=== PATIENT | male | born 2005 | race Caucasian/White ===

== ENCOUNTER 2025-07-14 16:39 | Emergency (ER) | payer OTHER, SELFPAY ==
[2025-07-14 16:41] VITALS: BP 141/81; PULSE 113; RESP 18; TEMP 38.8; O2SAT 94; BMI 20.1
--- NOTE | 2025-07-14 16:55 | CT_ITS ---
PROCEDURE: CT SOFT TISSUE NECK WITH CONTRAST 07/14/2025 REASON FOR EXAM: DYSPHONIA, SWELLING, FEVER TECHNIQUE: Procedure Code: CTNEW Modality: CT Procedure: SOFT TISSUE NECK WITH CONTRAST CONTRAST: Isovue 370 VOLUME: 74 mL One or more dose reduction techniques were used (e.g., Automated exposure control, adjustment of the mA and/or kV according to patient size, use of iterative reconstruction technique). RADIATION DOSE SUMMARY: CTDlvol: 13.23 mGy DLP: 403.33 mGycm COMPARISON: None. FINDINGS: Markedly enlarged bilateral palatine tonsils with hyperemia compatible with tonsillitis. No drainable fluid collection/abscess or other rim enhancing lesion is seen. No prevertebral/retropharyngeal soft tissue swelling. Mild-moderate narrowing of the oropharyngeal airway due to tonsillar enlargement. Prominent bilateral generalized cervical lymphadenopathy, most likely reactive. Bilateral major salivary glands appear symmetric and within normal limits. Unremarkable thyroid. Major vascular structures are patent, normal in course and caliber. 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 Visualized osseous structures are intact and within normal limits. Well-aerated paranasal sinuses and bilateral mastoid air cells, and middle ear cavities. Clear lung apices. CT/Soft Tissue Neck WITH Contrast IMPRESSION: Markedly enlarged bilateral palatine tonsils with hyperemia compatible with ton sillitis. No drainable fluid collection/abscess or retropharyngeal edema. Mild-moderate oropharyngeal airway narrowing. Prominent generalized bilateral cervical lymphadenopathy, likely reactive. Reading Location: [id number]
[2025-07-14] MEDS: 0.9% Normal Saline (1000mL) 1,000 ML 1000 ML IV (17:09)
--- OUTSIDE RECORDS SUMMARY | 2025-07-14 17:10 | XMS RPT_ITS | CCD ---
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 Encounter Date Encounter Type Care Provider Facility Start: 06-09-2025 End: 06-09-[address] Eduardo Long MD -[facility] Start: 06-09-2025 End: 06-09-[address] 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 Haja Kaba MD Work Phone: Plan of Treatment Date Care Activity Detail Author Start: 09-01-2025 Urine microalbumin profile DTaP,Tdap,Td Vaccine (7 - Td or Tdap) [facility] Start: 06-09-2025 Plain x-ray of hand Hand Min 3 Views [facility] Start: 06-09-2025 XR Hand GE 3 Views [facility] Start: 07-14-2024 Covid-19 Vaccine ( season) Covid-19 Vaccine ( season) [facility] Start: 07-14-2024 Influenza vaccination Influenza Vaccine (#1) [facility] Start: 2021 Anxiety Screening Anxiety Screening [facility] Start: 2021 Depression Screening Depression Screening [facility] Start: 2021 Hepatitis C screening Hepatitis C Screening [facility] Start: 2021 HIV screening HIV Screening [facility] Start: 2019 Meningococcal B Vaccine: Consider Based On Risk (1 of 2 - Patient Seeks Protection) Meningococcal B Vaccine: Consider Based On Risk (1 of 2 - Patient Seeks Protection) [facility] Start: 2017 Peds To Adult Transition Annual Assessment Peds To Adult Transition Annual Assessment [facility] Start: 2015 Peds To Adult Transition Initial Discussion Peds To Adult Transition Initial Discussion [facility] Immunizations Immunization Date Immunization Notes Care Provider Marcia hensley 10-14-2016 influenza virus vacc ine, unspecified formulation Edilma Feldman APRN.MARITZA Work Phone: [facility] Payers Date Payer Category Payer Self-pay 2025 Unknown [id number] 2017 Private Health Insurance [id number] 2003 Unknown [id number] 1963 Unknown [id number] Private Health Insurance [id number] Private Health Insurance [id number] Unknown [id number] Unknown [id number] Unknown [id number] Social History Date Type Detail Facility Tobacco smoking status MIIS Tobacco smoking consumption unknown [facility] Start: 2003 Sex assigned at Not on file [facility] Gender identity Not on file [facility] Start: 06-09-2025 Tobacco smoking status MIIS Smokes tobacco daily (finding) [facility] Start: 2003 Sex Assigned At Male W [facility] Instructions 09-16-2024 Patient Instructions Note Date & Type Note Facility 09-16-2024 Instructions Edilma Feldman APRN.CNP - 09/16/2024 12:21 PM EST ASSESSMENT/PLAN: 1. Swelling of right lower eyelid - ICD9: 374.82, ICD10: H02.842 - POLYMYXIN B SULFATE 10,000 UNIT-TRIMETHOPRIM 1 MG/ML EYE DROPS - cool compresses will reduce swelling. - Follow-up with your PCP in 3-5 days if symptoms have not improved or sooner if symptoms worsen - Discussed red flags and need for immediate medical evaluation if any occur. - Discussed supportive care treatment with fluids, rest and analgesia. - Discussed expected course of illness Edilma Feldman APRN.CNP documented in this encounter [facility] Progress note 09-16-2024 Note Date & Type Note Facility 09-16-2024 Note HNO ID: [id number] Author: EDILMA FELDMAN APRN.CNP Service: ? Author Type: Nurse Practitioner Type: Progress Notes Filed: 09/16/2024 12:26 Note Text: Subjective Eye Problem Pertinent negatives include no chills or fever. Nigel Morejon is a 19 year old male who presents with right lower eyelid swelling and tenderness for the past 2 days. This started on Monday States eye was almost swollen shut. Denies eye pain, discharge, or visual changes No ear pain or sore throat No cough, congestion. He has not used any medication in the eye. Denies trauma to the eye. Review of Systems Constitutional: Negative for chills and fever. Eyes: Negative for blurred vision, double vision, photophobia, pain, discharge and redness. Respiratory: Negative. Cardiovascular: Negative. Musculoskeletal: Negative. BP 128/72 Pulse 70 Temp 36.2 ?C (97.2 ?F) Resp 16 Wt 67.3 kg (148 lb 5.9 oz) SpO2 97% No past medical history on file. No past surgical history on file. ALLERGIES Patient has no known allergies. MEDICATIONS No prescriptions on file. No family history on file. Objective Physical Exam Vitals and nursing note reviewed. Constitutional: Appearance: Normal appearance. HENT: Right Ear: Tympanic membrane, ear canal and external ear normal. Left Ear: Tympanic membrane, ear canal and external ear normal. Nose: No congestion or rhinorrhea. Eyes: General: No allergic shiner. Right eye: No foreign body, discharge or hordeolum. Left eye: No discharge. Extraocular Movements: Extraocular movements intact. Conjunctiva/sclera: Conjunctivae normal. Right eye: Right conjunctiva is not injected. No chemosis, exudate or hemorrhage. Left eye: Left conjunctiva is not injected. No chemosis. Pupils: Pupils are equal, round, and reactive to light. Comments: Visual acuity: OD 20/20 OS 20/20 Cardiovascular: Rate and Rhythm: Normal rate. Pulmonary: Effort: Pulmonary effort is normal. Skin: General: Skin is warm and dry. Findings: Erythema present. No rash. Neurological: Mental Status: He is alert. ASSESSMENT/PLAN: 1. Swelling of right lower eyelid - ICD9: 374.82, ICD10: H02.842 - suspect resolving stye - POLYMYXIN B SULFATE 10,000 UNIT-TRIMETHOPRIM 1 MG/ML EYE DROPS - cool compresses will reduce swelling. - Follow-up with your PCP in 3-5 days if symptoms have not improved or sooner if symptoms worsen - Discussed red flags and need for immediate medical evaluation if any occur. - Discussed supportive care treatment with fluids, rest and analgesia. - Discussed expected course of illness Edilma Feldman APRN.MARITZA [facility] History of Present illness Narrative 09-16-2024 Edilma Feldman APRN.MARITZA - 09/16/2024 12:20 PM EST Note Date & Type Note Facility 09-16-2024 History of Presen t illness Narrative Images from the original note were not included. Subjective Eye Problem Pertinent negatives include no chills or fever. Nigel Morejon is a 19 year old male who presents with right lower eyelid swelling and tenderness for the past 2 days. This started on Monday States eye was almost swollen shut. Denies eye pain, discharge, or visual changes No ear pain or sore throat No cough, congestion. He has not used any medication in the eye. Denies trauma to the eye. Review of Systems Constitutional: Negative for chills and fever. Eyes: Negative for blurred vision, double vision, photophobia, pain, discharge and redness. Respiratory: Negative. Cardiovascular: Negative. Musculoskeletal: Negative. BP 128/72 Pulse 70 Temp 36.2 C (97.2 F) Resp 16 Wt 67.3 kg (148 lb 5.9 oz) SpO2 97% No past medical history on file. No past surgical history on file. ALLERGIES Patient has no known allergies. MEDICATIONS No prescriptions on file. No family history on file. Objective Physical Exam Vitals and nursing note reviewed. Constitutional: Appearance: Normal appearance. HENT: Right Ear: Tympanic membrane, ear canal and external ear normal. Left Ear: Tympanic membrane, ear canal and external ear normal. Nose: No congestion or rhinorrhea. Eyes: General: No allergic shiner. Right eye: No foreign body, discharge or hordeolum. Left eye: No discharge. Extraocular Movements: Extraocular movements intact. Conjunctiva/sclera: Conjunctivae normal. Right eye: Right conjunctiva is not injected. No chemosis, exudate or hemorrhage. Left eye: Left conjunctiva is not injected. No chemosis. Pupils: Pupils are equal, round, and reactive to light. Comments: Visual acuity: OD 20/20 OS 20/20 Cardiovascular: Rate and Rhythm: Normal rate. Pulmonary: Effort: Pulmonary effort is normal. Skin: General: Skin is warm and dry. Findings: Erythema present. No rash. Neurological: Mental Status: He is alert. ASSESSMENT/PLAN: 1. Swelling of right lower eyelid - ICD9: 374.82, ICD10: H02.842 - suspect resolving stye - POLYMYXIN B SULFATE 10,000 UNIT-TRIMETHOPRIM 1 MG/ML EYE DROPS - cool compresses will reduce swelling. - Follow-up with your PCP in 3-5 days if symptoms have not improved or sooner if symptoms worsen - Discussed red flags and need for immediate medical evaluation if any occur. - Discussed supportive care treatment with fluids, rest and analgesia. - Discussed expected course of illness Edilma Feldman APRN.[employer] INTER[employer] documented in this encounter [facility] Evaluation note Note Date & Type Note Facility Evaluation note Diagnosis Swelling of right lower eyelid- Primary documented in this encounter [facility] Evaluation note Note Date & Type Note Facility Evaluation note No assessment information availa ble [facility] Work Phone: Reason for referral (narrative) Note Date & Type Note Facility Reason for referral (narrative) No reason for referral information available [facility] Work Phone: Summary Purpose Family History No Family History Records FoundNo Family History Records FoundNo Family History Records FoundNo Family History Records FoundNo Family History Records Found Advance Directives No Advanced Directives Records FoundNo Advanced Directives Records FoundNo Advanced Directives Records FoundNo Advanced Directives Records FoundNo Advanced Directives Records Found Chief Complaint and Reason for Visit Chief Complaint Admit Date R PINKY INJURY June 09, 2025 7:52 am XRAY June 09, 2025 8:07 am Additional Source Comments (unrecognized sect ion and content) No Status Records FoundNo Status Records FoundNo Status Records FoundNo Status Records FoundNo Status Records Found INFORMATION SOURCE (unrecogn ized section and content) DATE CREATED AUTHOR 05/09/2018 [facility] ([place]) DATE CREATED AUTHOR AUTHOR'S ORGANIZ ATION 06/23/2020 [facility] DATE CREATED AUTHOR AUTHOR'S ORGANIZ ATION 11/01/2023 [facility] DATE CREATED AUTHOR AUTHOR'S ORGANIZ ATION 09/17/2024 [facility] DATE CREATED AUTHOR AUTHOR'S ORGANIZ ATION 06/09/2025 [facility] Source Comments (unrecognize d section and content) In the event this informatio n is protected by the Federal Confidentiality of Alcohol and Drug Abuse Patient Records regulations: The Federal rules restrict any use of the information to criminally investigate or prosecute any alcohol or drug abuse patient.[facility] Reason for Visit (unrecogniz ed section and content) Reason Comments Eye Problem right eye redness, i rritation and swelling x 2 days Care Teams (unrecognized sec tion and content) Team Status: Active Member Role/Relationship Status Dates Dr. Haja Kaba MD Family Provider Active Dr. Haja Kaba MD Primary Care Provider Active Team Status: Active Member Role/Relationship Status Dates Dr. Haja Kaba MD Primary Care Provider Active Start: June 09, 2025 Dr. Haja Kaba MD Referring Provider Active Start: June 09, 2025 Edgard BOWLES PA Attending Provider Active Start: June 09, 2025 Team Status: Inactive Member Role/Relationship Status Dates Dr. Haja Kaba MD Primary Care Provider Active Start: June 09, 2025 End: June 09, 2025 Dr. Eduardo Long MD Attending Provider Active S tart: June 09, 2025 End: June 09, 2025 Team Status: Inactive Member Role/Relationship Status Dates Dr. Haja Kaba MD Primary Care Provider Active Start: June 09, 2025 End: June 09, 2025 Dr. Haja Kaba MD Referring Provider Active Start: June 09, 2025 End: June 09, 2025 Edgard BOWLES PA Attending Provider Active Start: June 09, 2025 End: June 09, 2025 Goals (unrecognized section and content) Goals may be documented in a n alternate sectionGoals may be documented in an alternate section FOR RECORDS PERTAINING TO PATIENTS WHO ARE OR HAVE BEEN ENROLLED IN A CHEMICAL DEPENDENCY/SUBSTANCEABUSE PROGRAM, SOME INFORMATION MAY BE OMITTED. This clinical summary was aggregated from multiple sources. Caution should be exercised in using it in the provision of clinical care. This summary normalizes information from multiple sources, and as a consequence, information in this document may materially change the coding, format and clinical context of patient data. In addition, data may be omitted in some cases. CLINICAL DECISIONS SHOULD BE BASED ON THE PRIMARY CLINICAL RECORDS. [facility]. provides no warranty or guarantee of the accuracy or completeness of information in this document.
[2025-07-14 17:15] LABS: Hematocrit 42.3 % (40-54); Hemoglobin 14.5 g/dL (13.0-16.5); Mean Corp Hgb Conc 34.3 g/dL (32-36); Mean Corpuscular Volume 88.1 fL (80-94); Mean Platelet Vol. 9.9 fl (6.2-12.0); POSITIVE DIFFERENTIAL YES; POSITIVE MORPHOLOGY YES; Platelet Count 212 K/mm3 (150-450); RBC Distribution Width CV 12.6 % (11.6-14.6); RBC Distribution Width SD 39.9 fl (35.1-43.9); Red Blood Count 4.80 M/mm3 (4.6-6.2); White Blood Count 16.3 K/mm3 (4.4-11.0)
[2025-07-14 17:40] LABS: Differential Indicated MANUAL DIFF
[2025-07-14 17:44] LABS: Neutrophil-Band 8 % (0-5); Neutrophil-Segmented 42 % (47-70); Total Cells Counted 100 (MANUAL DIFF)
[2025-07-14 17:45] LABS: Red Cell Morphology NORM C+C NORMAL (NORM C&C)
[2025-07-14 17:47] LABS: Anion Gap 13 (5-15); BUN 8 mg/dL (4-19); BUN/Creat Ratio 8.8 RATIO (10-20); Calcium,Total 8.8 mg/dL (7.6-11.0); Carbon Dioxide 23.5 mmol/L (21.0-32.0); Chloride 95 mmol/L (98-108); Estimated Creatinine Clearance 103.53 ml/min (50-250); Glucose 106 mg/dL (70-99); Potassium 4.6 mmol/L (3.3-5.1)
[2025-07-14] MEDS: Ampicillin/Sulbactam 3 GM in 0.9% Normal Saline (100mL MB+) 100 ML IV (18:28)
--- NOTE | 2025-07-14 18:29 | EX.ED.DYSGE1 ---
HPI History of Present Illness Chief Complaint: Other, Pain/Inj Detail of Chief Complaint: Sore throat, fever, dysphonia, neck swelling Informant: patient Onset/Context/Timing Onset: Days (2 days ago) Context: Sudden Onset Timing: Continuous Quality: Tmax 102.6 degrees Location: Upper airway Current Severity: Mild Maximum Severity: Moderate Worsened by: Swallowing Relieved by: Nothing Associated Symptoms Associated Symptoms: HPI narrative Narrative Narrative: Patient is a 20-year-old male. He presents because of Tmax 102.6, sore throat, dysphonia, neck swelling left greater than right, compression of airway . Patient symptoms started 2 days ago. He denies rhinorrhea, congestion postnasal drainage. Reports slight cough. He is a smoker. The cough is nonproductive. He denies myalgias arthralgias. He does endorse chills. He denies rash. Denies history of medic fever, heart murmur or mitral valve prolapse. Patient denies headache, photophobia posterior neck pain or neck stiffness. Patient denies dyspnea, dyspnea on exertion or chest discomfort. Patient denies abdominal pain, nausea, vomiting or diarrhea. Recent Illness/Hospitalization: No PFSH PFSH Medical History no medical history no medical history Home Medications ?Medication ?Instructions ?Recorded ?Last Taken ?Type amoxicillin 875 mg-potassium 875 mg PO Q12H #20 TABLETS 07/14/25 Unknown Rx clavulanate 125 mg tablet dexamethasone 4 mg tablet 4 mg PO DAILY #3 tabs 07/14/25 Unknown Rx Allergy/AdvReac Type Severity Reaction Status Date / Time No Known Allergies Allergy Verified 07/14/25 16:40 Social History (Updated 07/14/25 @ 18:[address] Vadim Holland MD) household members: family Smoking Status: Former smoker ROS ROS ED Constitutional Constitutional ED: Reports chills and fever(s); Denies subjective or sweats Eyes Eyes: Reports other Details: No photophobia ; Denies blurry vision or change in vision ENT ENT ED: Reports sore throat; Denies ear pain or rhinorrhea Cardiovascular Cardiovascular: Denies chest pain, orthopnea, palpitations, paroxysmal nocturnal dyspnea or racing heartbeat Respiratory/Chest Respiratory/Chest: Reports cough; Denies dyspnea, dyspnea on exertion, orthopnea, paroxysmal nocturnal dyspnea or sputum Gastrointestinal Gastrointestinal: Denies abdominal pain, diarrhea, nausea or vomiting Musculoskeletal Musculoskeletal: Reports neck pain; Denies arthralgias or myalgias Integumentary Denies rash Neurologic Neurologic: Denies headache(s) or weakness Hematologic/Lymphatic Hematologic/Lymphatic: Reports systems reviewed and no addt'l complaints, except as documented EXAM Physical Exam Const Vital Signs: 07/14/25 16:41 07/14/25 17:32 Temperature 101.9 F H Temperature Source Oral Pulse Rate 113 H Respiratory Rate 18 Respiratory Effort Normal Respiratory Depth Normal Respiratory Pattern Normal Blood Pressure 141/81 H Blood Pressure Mean 101 Pulse Ox 94 Oxygen Delivery Method Room Air Positive well nourished and well developed Constitutional Narrative: Patient appears in no obvious distress. His voice is slightly muffled. His blood pressure is elevated. He is tachycardic with a temperature 101.9. General Appearance ED: well developed; Negative for pallor HEENT HEENT Narrative: Exudative tonsillitis. With abutment of the uvula. There is evidence of a peritonsillar cellulitis without abscess. He does have slight dysphonia. Eyes PERRL and EOMs intact bilaterally General Eye ED: Negative for pale conjunctiva or scleral icterus Neck No no lymphadenopathy, supple and no JVD Neck Narrative: Trachea is midline. There is no discomfort with movement of the larynx. There is no inspiratory expiratory stridor. He does have cervical lymphadenopathy left greater than right. There is obvious swelling noted on the left. There is no evidence of facial cellulitis or cellulitis over the anterior neck. There is no tenderness over the carotid arteries. There is no carotid bruits noted. Patient is not drooling. There is no trismus. Resp normal respiratory effort and clear to auscultation bilaterally Cardio regular rhythm, S1 normal heart sound, S2 normal heart sound and no murmurs Rate: tachycardic GI normal to inspection, nondistended, normoactive bowel sounds, non-tender, non-distended and no masses; Negative for hepatosplenomegaly Extremity normal to inspection Neuro oriented x3 and CN's II-XII intact bilaterally Sensorium / Orientation: alert Psych mental status grossly normal Skin no rashes or lesions noted, no wounds and skin turgor normal General Skin Exam: elasticity normal; Negative for jaundice or pallor MDM MDM MDM Narrative Medical decision making narrative: With swelling, dysphonia, complaining that his throat is being compressed we will obtain CT of the neck with IV contrast. This was obtained to evaluate for retropharyngeal abscess, parapharyngeal abscess, Ludewig's angina is not considered since he has no dental pain and there is no swelling or abnormality of the floor of the mouth. He was treated with Decadron, Unasyn and appropriate labs were obtained. Lab Data Attestation: I reviewed the patient's lab results. Lab results narrative: White count is 16.3 with 42 neutrophils 8 bands and 37% lymphocytes. There is no atypical lymphocytes noted. Electrolyte panel reveals mild hyponatremia and hypochloremia. Glucose is slightly elevated 106 with normal CO2 anion gap. BUN and creatinine are normal with an estimated GFR of 116. Labs: Laboratory Results - last 24 hr 07/14/25 17:07 WBC 16.3 H RBC 4.80 Hgb 14.5 Hct 42.3 MCV 88.1 MCH 30.2 MCHC 34.3 RDW Std Deviation 39.9 RDW Coeff of Lennox 12.6 Plt Count 212 MPV 9.9 Neut % (Auto) Not Reportable Absolute Neuts (auto) 8.1 H Absolute Lymphs (auto) 6.02 H Total Counted 100 Neutrophils % (Manual) 42 L Band Neutrophils % 8 H Lymphocytes % (Manual) 37 Monocytes % (Manual) 10 Eosinophils % (Manual) 3 Platelet Estimate ADEQUATE RBC Morphology NORM C+C Sodium 132 L Potassium 4.6 Chloride 95 L Carbon Dioxide 23.5 Anion Gap 13 BUN 8 Creatinine 0.95 Estim Creat Clear Calc 103.53 Est GFR (MDRD) Non-Af 116 BUN/Creatinine Ratio 8.8 L Glucose 106 H Calcium 8.8 Radiography Diagnostic Testing: Clinical Impression(s) from Imaging Studies Soft Tissue Neck CT 07/14/25 16:55 IMPRESSION: Markedly enlarged bilateral palatine tonsils with hyperemia compatible with tonsillitis. No drainable fluid collection/abscess or retropharyngeal edema. Mild-moderate oropharyngeal airway narrowing. Prominent generalized bilateral cervical lymphadenopathy, likely reactive. Reading Location: [facility] The radiology report was noted. Plan is discharge to home on Augmentin and short burst of Decadron. Parents see Dr. Gregory Bermudez. Parents asked if he could follow-up with Dr. Bermudez. Discharge Plan Triage Chief Complaint: Other, Pain/Inj Other Complaint: Cough ED Provider: Vadim Holland Dx/Rx/DC Orders Clinical Impression: Exudative tonsillitis, Dysphonia, Sinus tachycardia seen on caterer helper, Fever in adult, Peritonsillar cellulitis, Dehydration, mild Instructions: Tonsillitis in Adults Prescriptions: New amoxicillin-pot clavulanate 875-125 mg tablet 875 mg PO Q12H Qty: 20 0RF dexamethasone 4 mg tablet 4 mg PO DAILY Qty: 3 0RF Primary Care Provider: Care Physician,No Primary Referrals: Gregory Bermudez MD [Med Staff - Active Staff] - 3-5 Days if not improving Care Physician,No Primary [Primary Care Provider] - Print Language: French Disposition Disposition: Home, Self Care
[2025-07-14 18:56] VITALS: BP 117/84; PULSE 91; RESP 16; TEMP 37.1; O2SAT 100
== END 2025-07-14 19:19 | disposition home or self-care (01) ==
PROVIDERS: Emergency Provider Emergency Medicine; Visit Provider Emergency Medicine
DX: J36 Peritonsillar abscess (principal); R49.0 Dysphonia; R00.0 Tachycardia, unspecified; E86.0 Dehydration; Z87.891 Personal history of nicotine dependence
CPT/HCPCS: 70491; 80048; 85025; 96361; 96365; 96375; 99284; Q9967; A4216; J0295